=== PATIENT | female | born 1995 ===

== ENCOUNTER 2021-07-23 16:48 | Inpatient (IN) ==
[2021-07-23 18:35] LABS: Basophils # 0.1 10*3/uL (0.0-0.2); Basophils % 0.3 % (0.0-0.8); Eosinophils # 0.1 10*3/uL (0.0-0.87); Eosinophils % 0.3 % (0.00-10.9); Hemoglobin 11.9 GM/DL (12.0-16.0); Immature Granulocytes % 0.9 %; Immature Granulocytes Absolute 0.17 #; Lymphocytes # 2.2 10*3/uL (1.4-4.0); Lymphocytes % 11.2 % (21.3-54.2); Mean Corpuscular HGB Conc 32.2 GM/DL (32-36); Mean Corpuscular Volume 86.9 FL (87-102); Mean Platelet Volume 9.1 FL (9.6-12.0); Monocytes # 1.6 10*3/uL (0.11-0.8); Monocytes % 8.2 % (1.7-12.7); Neutrophils % 79.1 % (38.7-73.9); Platelet Count 356 T/CUMM (130-400); Red Blood Count 4.26 MC/CUMM (3.8-5.5); Red Cell Distribution Width 14.2 % (9.3-17.3); White Blood Count 19.9 T/CUMM (4-12)
[2021-07-23 18:56] LABS: Albumin 3.1 G/DL (3.4-5.0); Bilirubin,Total 0.5 MG/DL (0.20-1.00); Calcium 8.3 MG/DL (8.5-10.1); Potassium 3.5 MMOL/L (3.5-5.1); Total Protein 7.8 G/DL (6.4-8.2)
[2021-07-23 18:59] LABS: Mucus,Urine Occasional /LPF (Occasional); RBC,Urine 1 /HPF (0-4); Squamous Epithelial Cell,Urine Occasional /HPF (0-10); Urine Appearance Clear (Clear); Urine Color Yellow (Yellow)
[2021-07-23 19:00] LABS: Bilirubin,Urine Negative (Negative); Blood, Urine Negative (Negative); Glucose,Urine (UA) Negative (Negative); Ketones,Urine Negative (Negative); Nitrite,Urine Negative (Negative); Protein,Urine Negative (Negative); Urine Urobilinogen 0.2 eU/dL (<2.0); Urine pH 5.5 (4.5-8.0)
[2021-07-23] MEDS ORDERED: PIPERACILLIN/TAZOBACTAM 3,375 MG in SODIUM CHLORIDE 0.9% 100 ML IV STA (19:45)
[2021-07-23] MEDS ORDERED: ONDANSETRON 4 MG/2 ML VIAL IV STA (20:27)
[2021-07-23] MEDS ORDERED: ONDANSETRON 4 MG/2 ML VIAL ONE (20:28)
[2021-07-23] MEDS ORDERED: MAGNESIUM HYDROXIDE SUSP 30 ML UDCUP PO PRN (21:46)
[2021-07-23] MEDS ORDERED: ONDANSETRON 4 MG/2 ML VIAL IV PRN (21:46)
[2021-07-23] MEDS ORDERED: MORPHINE 2 MG/1 ML SYRINGE IV PRN (21:46)
[2021-07-23] MEDS ORDERED: IBUPROFEN 400 MG TABLET PO PRN (21:46)
[2021-07-23] MEDS ORDERED: ACETAMINOPHEN 325 MG TABLET PO PRN (21:46)
[2021-07-23] MEDS ORDERED: BISACODYL 10 MG SUPP RECTAL PRN (21:46)
[2021-07-23] MEDS: SODIUM CHLORIDE 0.9% 1,000 ML IV SCH (22:32)
[2021-07-23] MEDS: DOXYCYCLINE HYCLATE INJ 100 MG in SODIUM CHLORIDE 0.9% 100 ML IV SCH (23:05)
[2021-07-24] MEDS: CEFUROXIME INJ 1,500 MG in SODIUM CHLORIDE 0.9% 100 ML IV SCH ×2 (00:15→08:09)
[2021-07-24 04:32] LABS: Basophils # 0.1 10*3/uL (0.0-0.2); Basophils % 0.3 % (0.0-0.8); Eosinophils # 0.1 10*3/uL (0.0-0.87); Eosinophils % 0.4 % (0.00-10.9); Hematocrit 35.3 VOL% (35.7-47.0); Hemoglobin 11.4 GM/DL (12.0-16.0); Immature Granulocytes % 0.6 %; Immature Granulocytes Absolute 0.11 #; Lymphocytes # 2.5 10*3/uL (1.4-4.0); Lymphocytes % 12.8 % (21.3-54.2); Mean Corpuscular HGB Conc 32.3 GM/DL (32-36); Mean Corpuscular Volume 87.6 FL (87-102); Mean Platelet Volume 9.3 FL (9.6-12.0); Monocytes # 1.6 10*3/uL (0.11-0.8); Monocytes % 8.1 % (1.7-12.7); Neutrophils % 77.8 % (38.7-73.9); Platelet Count 323 T/CUMM (130-400); Red Blood Count 4.03 MC/CUMM (3.8-5.5); Red Cell Distribution Width 14.2 % (9.3-17.3); White Blood Count 19.4 T/CUMM (4-12)
[2021-07-24 04:51] LABS: Albumin 2.7 G/DL (3.4-5.0); Bilirubin,Total 0.5 MG/DL (0.20-1.00); Potassium 3.5 MMOL/L (3.5-5.1); Total Protein 7.2 G/DL (6.4-8.2)
[2021-07-24] MEDS: SODIUM CHLORIDE 0.9% 1,000 ML IV SCH ×2 (08:08→15:54)
[2021-07-24] MEDS ORDERED: ETHINYL ESTRADIOL/NORGESTREL 0.03-0.3 MG TABLET PO SCH (09:00)
[2021-07-24] MEDS: DOCUSATE SODIUM 100 MG CAPSULE PO SCH ×2 (09:53→21:09)
[2021-07-24] MEDS: DOXYCYCLINE HYCLATE INJ 100 MG in SODIUM CHLORIDE 0.9% 100 ML IV SCH ×2 (10:57→23:15)
[2021-07-25] MEDS ORDERED: IBUPROFEN 800 MG TABLET PO ONE (04:13)
[2021-07-25 07:07] VITALS: BP 118/61
[2021-07-25] MEDS: SODIUM CHLORIDE 0.9% 1,000 ML IV SCH (08:00)
[2021-07-25 08:49] LABS: Basophils % 0.2 % (0.0-0.8); Eosinophils # 0.2 10*3/uL (0.0-0.87); Eosinophils % 0.9 % (0.00-10.9); Hematocrit 37.1 VOL% (35.7-47.0); Immature Granulocytes % 0.5 %; Lymphocytes % 15.9 % (21.3-54.2); Mean Corpuscular HGB Conc 32.3 GM/DL (32-36); Mean Corpuscular Volume 87.3 FL (87-102); Mean Platelet Volume 9.4 FL (9.6-12.0); Monocytes # 1.1 10*3/uL (0.11-0.8); Neutrophils % 76.5 % (38.7-73.9); Platelet Count 351 T/CUMM (130-400); Red Blood Count 4.25 MC/CUMM (3.8-5.5); Red Cell Distribution Width 14.2 % (9.3-17.3); White Blood Count 18.5 T/CUMM (4-12)
[2021-07-25] MEDS: DOCUSATE SODIUM 100 MG CAPSULE PO SCH (08:53)
== END 2021-07-25 13:15 | disposition home or self-care (01) | DRG 759 ==
LOC: EDUNIT# → EDBD → N.ED 16:48 → N.EDINP 21:21 → N.5E 21:43 → N.OB 07-24 14:45
PROVIDERS: ADMIT Student in an Organized Health Care Education/Training Program; ATTEND Student in an Organized Health Care Education/Training Program

== ENCOUNTER 2022-01-22 19:21 | Inpatient (IN) ==
[2022-01-22] MEDS ORDERED: SODIUM CHLORIDE 0.9% 1,000 ML IV STA (19:53)
[2022-01-22] MEDS ORDERED: HYDROmorphone 1 MG/1 ML SYRINGE IV STA (19:53)
[2022-01-22] MEDS ORDERED: PIPERACILLIN/TAZOBACTAM 3,375 MG in SODIUM CHLORIDE 0.9% 100 ML IV STA (19:53)
[2022-01-22] MEDS ORDERED: ONDANSETRON 4 MG/2 ML VIAL IV STA (19:53)
[2022-01-22 21:16] LABS: Basophils # 0.1 10*3/uL (0.0-0.2); Basophils % 0.3 % (0.0-0.8); Hematocrit 32.1 VOL% (35.7-47.0); Hemoglobin 10.6 GM/DL (12.0-16.0); Immature Granulocytes % 3.6 %; Immature Granulocytes Absolute 1.21 #; Lymphocytes # 1.4 10*3/uL (1.4-4.0); Lymphocytes % 4.2 % (21.3-54.2); Mean Corpuscular Volume 85.1 FL (87-102); Mean Platelet Volume 9.1 FL (9.6-12.0); Monocytes # 2.2 10*3/uL (0.11-0.8); Monocytes % 6.6 % (1.7-12.7); Neutrophils % 85.3 % (38.7-73.9); Platelet Count 367 T/CUMM (130-400); Red Blood Count 3.77 MC/CUMM (3.8-5.5); Red Cell Distribution Width 14.6 % (9.3-17.3); White Blood Count 33.8 T/CUMM (4-12)
[2022-01-22 21:24] LABS: Bacteria,Urine Occasional /HPF (Few); Bilirubin,Urine Small mg/dL (Negative); Blood, Urine Large mg/dL (Negative); Glucose,Urine (UA) 50 mg/dL (Negative); Ketones,Urine 5 mg/dL (Negative); Mucus,Urine Many /LPF (Occasional); Nitrite,Urine Negative (Negative); Protein,Urine 100 mg/dL (Negative); RBC,Urine 1518 /HPF (0-4); Squamous Epithelial Cell,Urine Occasional /HPF (0-10); Urine Appearance CLOUDY (Clear); Urine Color Amber (Yellow); Urine Specific Gravity 1.028 (1.001-1.035)
[2022-01-22 21:38] LABS: Albumin 2.3 G/DL (3.4-5.0); Bilirubin,Total 0.7 MG/DL (0.20-1.00); Calcium 8.3 MG/DL (8.5-10.1); Osmolality,Calculated 268.4 MOS/KG (273-304); Potassium 3.2 MMOL/L (3.5-5.1); Total Protein 7.3 G/DL (6.4-8.2)
[2022-01-22 21:45] LABS: Band Neutrophils 10 % (0-10); Lymphocytes 4 % (20-55); Metamyelocytes 1 %; Total Cells Counted 100
[2022-01-22 21:46] LABS: Anisocytosis 1+; Microcytosis 1+
[2022-01-22 21:47] LABS: Platelet Estimate Adequate
[2022-01-23] MEDS ORDERED: MAGNESIUM HYDROXIDE SUSP 30 ML UDCUP PO PRN (00:39)
[2022-01-23] MEDS ORDERED: CLINDAMYCIN INJ 900 MG/50 ML PREMIX IV SCH (00:39)
[2022-01-23] MEDS ORDERED: BISACODYL 10 MG SUPP RECTAL PRN (00:39)
[2022-01-23] MEDS: SODIUM CHLORIDE 0.9% 1,000 ML IV SCH ×3 (00:50→22:34)
[2022-01-23] MEDS: CLINDAMYCIN INJ 900 MG/50 ML PREMIX IV SCH ×3 (01:20→20:47)
[2022-01-23] MEDS: DOXYCYCLINE HYCLATE INJ 100 MG in SODIUM CHLORIDE 0.9% 100 ML IV SCH ×2 (02:06→15:11)
[2022-01-23] MEDS: ACETAMINOPHEN 325 MG TABLET PO PRN ×2 (04:00→04:01)
[2022-01-23 06:51] LABS: Basophils # 0.1 10*3/uL (0.0-0.2); Basophils % 0.2 % (0.0-0.8); Hematocrit 32.1 VOL% (35.7-47.0); Hemoglobin 10.5 GM/DL (12.0-16.0); Immature Granulocytes % 4.1 %; Immature Granulocytes Absolute 1.14 #; Lymphocytes # 0.9 10*3/uL (1.4-4.0); Lymphocytes % 3.3 % (21.3-54.2); Mean Corpuscular HGB Conc 32.7 GM/DL (32-36); Mean Corpuscular Volume 86.1 FL (87-102); Mean Platelet Volume 9.2 FL (9.6-12.0); Monocytes # 1.9 10*3/uL (0.11-0.8); Monocytes % 6.9 % (1.7-12.7); Neutrophils % 85.5 % (38.7-73.9); Platelet Count 371 T/CUMM (130-400); Red Blood Count 3.73 MC/CUMM (3.8-5.5); Red Cell Distribution Width 14.8 % (9.3-17.3); White Blood Count 28.1 T/CUMM (4-12)
[2022-01-23 07:13] LABS: Band Neutrophils 5 % (0-10); Hypochromia Slight; Lymphocytes 2 % (20-55); Microcytosis Slight; Platelet Estimate Adequate; Total Cells Counted 100
[2022-01-23 07:20] LABS: Albumin 2.2 G/DL (3.4-5.0); Bilirubin,Total 0.8 MG/DL (0.20-1.00); Calcium 7.7 MG/DL (8.5-10.1); Potassium 3.2 MMOL/L (3.5-5.1); Total Protein 7.1 G/DL (6.4-8.2)
[2022-01-23] MEDS: DOCUSATE SODIUM 100 MG CAPSULE PO SCH ×2 (09:41→20:47)
[2022-01-23] MEDS: HYDROmorphone 1 MG/1 ML SYRINGE IV PRN (11:49)
[2022-01-23] MEDS ORDERED: oxyCODONE/ACETAMINOPHEN 5-325 MG TABLET PO PRN ×2 (14:16→14:17)
[2022-01-23] MEDS: PIPERACILLIN/TAZOBACTAM 3,375 MG in SODIUM CHLORIDE 0.9% 100 ML IV SCH ×2 (15:06→23:27)
[2022-01-23] MEDS: ACETAMINOPHEN 325 MG TABLET PO SCH ×2 (15:25→20:48)
[2022-01-23] MEDS: IBUPROFEN 800 MG TABLET PO PRN (16:52)
[2022-01-23] MEDS: ENOXAPARIN 40 MG/0.4 ML SYRINGE SUBCUT SCH (20:48)
[2022-01-23] MEDS: ONDANSETRON 4 MG/2 ML VIAL IV PRN (21:43)
[2022-01-24] MEDS: DOXYCYCLINE HYCLATE INJ 100 MG in SODIUM CHLORIDE 0.9% 100 ML IV SCH ×2 (03:35→15:24)
[2022-01-24] MEDS: ACETAMINOPHEN 325 MG TABLET PO SCH ×3 (03:36→18:39)
[2022-01-24] MEDS: CLINDAMYCIN INJ 900 MG/50 ML PREMIX IV SCH ×2 (05:15→12:52)
[2022-01-24 08:10] LABS: Basophils # 0.1 10*3/uL (0.0-0.2); Basophils % 0.2 % (0.0-0.8); Eosinophils # 0.1 10*3/uL (0.0-0.87); Eosinophils % 0.3 % (0.00-10.9); Hematocrit 31.5 VOL% (35.7-47.0); Hemoglobin 10.3 GM/DL (12.0-16.0); Immature Granulocytes % 1.5 %; Immature Granulocytes Absolute 0.49 #; Lymphocytes # 1.3 10*3/uL (1.4-4.0); Lymphocytes % 3.9 % (21.3-54.2); Mean Corpuscular HGB Conc 32.7 GM/DL (32-36); Mean Corpuscular Volume 86.1 FL (87-102); Mean Platelet Volume 9.2 FL (9.6-12.0); Monocytes # 1.4 10*3/uL (0.11-0.8); Monocytes % 4.4 % (1.7-12.7); Neutrophils % 89.7 % (38.7-73.9); Platelet Count 349 T/CUMM (130-400); Red Blood Count 3.66 MC/CUMM (3.8-5.5); Red Cell Distribution Width 15.3 % (9.3-17.3); White Blood Count 32.5 T/CUMM (4-12)
[2022-01-24] MEDS: PIPERACILLIN/TAZOBACTAM 3,375 MG in SODIUM CHLORIDE 0.9% 100 ML IV SCH ×2 (08:15→17:12)
[2022-01-24] MEDS: HYDROmorphone 1 MG/1 ML SYRINGE IV PRN ×2 (08:18→08:47)
[2022-01-24] MEDS: DOCUSATE SODIUM 100 MG CAPSULE PO SCH ×2 (08:19→20:46)
[2022-01-24 08:51] LABS: Band Neutrophils 27 % (0-10); Lymphocytes 8 % (20-55); Metamyelocytes 3 %; Myelocytes 1 %; Total Cells Counted 100
[2022-01-24 08:52] LABS: Anisocytosis Slight; Platelet Estimate Normal
[2022-01-24] MEDS: POTASSIUM CHLORIDE RIDER 10 MEQ/100 ML PREMIX IV PRN ×3 (12:51→15:30)
[2022-01-24] MEDS: SODIUM CHLORIDE 0.9% 1,000 ML IV SCH (15:28)
[2022-01-24] MEDS: oxyCODONE/ACETAMINOPHEN 5-325 MG TABLET PO PRN (17:31)
[2022-01-24] MEDS: CEFEPIME 1,000 MG in SODIUM CHLORIDE 0.9% 100 ML IV SCH ×2 (17:34→23:51)
[2022-01-24] MEDS: metroNIDAZOLE INJ 500 MG/100 ML PREMIX IV SCH (18:16)
[2022-01-24] MEDS: VANCOMYCIN INJ 2,000 MG in SODIUM CHLORIDE 0.9% 500 ML IV SCH (20:22)
[2022-01-24] MEDS: IBUPROFEN 800 MG TABLET PO PRN (20:47)
[2022-01-24] MEDS: ENOXAPARIN 40 MG/0.4 ML SYRINGE SUBCUT SCH (20:50)
[2022-01-25] MEDS: SODIUM CHLORIDE 0.9% 1,000 ML IV SCH (02:08)
[2022-01-25] MEDS: metroNIDAZOLE INJ 500 MG/100 ML PREMIX IV SCH ×3 (02:13→18:35)
[2022-01-25] MEDS: CEFEPIME 1,000 MG in SODIUM CHLORIDE 0.9% 100 ML IV SCH ×3 (05:37→17:25)
[2022-01-25] MEDS: ONDANSETRON 4 MG/2 ML VIAL IV PRN ×2 (06:00→12:47)
[2022-01-25 06:08] LABS: Basophils # 0.1 10*3/uL (0.0-0.2); Basophils % 0.2 % (0.0-0.8); Eosinophils # 0.1 10*3/uL (0.0-0.87); Eosinophils % 0.4 % (0.00-10.9); Hematocrit 32.4 VOL% (35.7-47.0); Hemoglobin 10.4 GM/DL (12.0-16.0); Immature Granulocytes % 2.5 %; Immature Granulocytes Absolute 0.83 #; Lymphocytes # 1.7 10*3/uL (1.4-4.0); Lymphocytes % 5.2 % (21.3-54.2); Mean Corpuscular HGB Conc 32.1 GM/DL (32-36); Mean Corpuscular Volume 87.3 FL (87-102); Mean Platelet Volume 9.2 FL (9.6-12.0); Monocytes # 1.6 10*3/uL (0.11-0.8); Monocytes % 4.7 % (1.7-12.7); Platelet Count 378 T/CUMM (130-400); Red Blood Count 3.71 MC/CUMM (3.8-5.5); Red Cell Distribution Width 15.5 % (9.3-17.3); White Blood Count 33.1 T/CUMM (4-12)
[2022-01-25 06:46] LABS: Calcium 7.9 MG/DL (8.5-10.1); Osmolality,Calculated 267.5 MOS/KG (273-304); Potassium 3.5 MMOL/L (3.5-5.1)
[2022-01-25 07:18] LABS: Eosinophils 1 % (0-10); Hypochromia Slight; Lymphocytes 8 % (20-55); Microcytosis Slight; Platelet Estimate Adequate; Total Cells Counted 100
[2022-01-25] MEDS: VANCOMYCIN INJ 2,000 MG in SODIUM CHLORIDE 0.9% 500 ML IV SCH (08:22)
[2022-01-25] MEDS: DOCUSATE SODIUM 100 MG CAPSULE PO SCH ×2 (09:48→21:14)
[2022-01-25] MEDS: IBUPROFEN 800 MG TABLET PO PRN (16:50)
[2022-01-25] MEDS: METOCLOPRAMIDE 10 MG/2 ML VIAL IV PRN (16:50)
[2022-01-25] MEDS: ENOXAPARIN 40 MG/0.4 ML SYRINGE SUBCUT SCH (21:14)
[2022-01-26] MEDS: ONDANSETRON 4 MG/2 ML VIAL IV PRN ×2 (00:07→20:37)
[2022-01-26] MEDS: CEFEPIME 1,000 MG in SODIUM CHLORIDE 0.9% 100 ML IV SCH ×2 (00:07→05:30)
[2022-01-26] MEDS: metroNIDAZOLE INJ 500 MG/100 ML PREMIX IV SCH ×2 (01:51→14:15)
[2022-01-26] MEDS: SODIUM CHLORIDE 0.9% 1,000 ML IV SCH (03:37)
[2022-01-26] MEDS: oxyCODONE/ACETAMINOPHEN 5-325 MG TABLET PO PRN (03:43)
[2022-01-26 05:37] LABS: Basophils # 0.1 10*3/uL (0.0-0.2); Basophils % 0.2 % (0.0-0.8); Eosinophils # 0.2 10*3/uL (0.0-0.87); Eosinophils % 0.5 % (0.00-10.9); Hematocrit 29.4 VOL% (35.7-47.0); Hemoglobin 9.3 GM/DL (12.0-16.0); Immature Granulocytes % 3.7 %; Immature Granulocytes Absolute 1.21 #; Lymphocytes # 1.7 10*3/uL (1.4-4.0); Lymphocytes % 5.3 % (21.3-54.2); Mean Corpuscular HGB Conc 31.6 GM/DL (32-36); Mean Corpuscular Volume 88.8 FL (87-102); Mean Platelet Volume 9.3 FL (9.6-12.0); Monocytes % 6.3 % (1.7-12.7); Platelet Count 407 T/CUMM (130-400); Red Blood Count 3.31 MC/CUMM (3.8-5.5); Red Cell Distribution Width 15.9 % (9.3-17.3); White Blood Count 32.5 T/CUMM (4-12)
[2022-01-26 06:09] LABS: Calcium 7.9 MG/DL (8.5-10.1); Osmolality,Calculated 279.1 MOS/KG (273-304); Potassium 3.3 MMOL/L (3.5-5.1)
[2022-01-26 06:23] LABS: Band Neutrophils 1 % (0-10); Hypochromia Slight; Lymphocytes 7 % (20-55); Microcytosis Slight; Platelet Estimate Adequate; Total Cells Counted 100
[2022-01-26] MEDS ORDERED: DEXAMETHASONE 4 MG/1 ML VIAL ONE ×2 (09:02→09:28)
[2022-01-26] MEDS ORDERED: fentaNYL 100 MCG/2 ML VIAL ONE (09:02)
[2022-01-26] MEDS ORDERED: ROCURONIUM 50 MG/5 ML VIAL IV ONE (09:02)
[2022-01-26] MEDS ORDERED: KETOROLAC 30 MG/1 ML VIAL ONE (09:02)
[2022-01-26] MEDS ORDERED: MIDAZOLAM 2 MG/2 ML VIAL ONE (09:02)
[2022-01-26] MEDS ORDERED: LIDOCAINE 2% 5 ML VIAL ONE (09:02)
[2022-01-26] MEDS ORDERED: SEVOFLURANE 1 UNIT/15 MINUTE INH ONE (09:02)
[2022-01-26] MEDS ORDERED: propofoL 200 MG/20 ML VIAL IV ONE (09:02)
[2022-01-26] MEDS ORDERED: ONDANSETRON 4 MG/2 ML VIAL ONE (09:02)
[2022-01-26] MEDS ORDERED: ROPIVACAINE 0.5% 30 ML VIAL ONE (09:28)
[2022-01-26] MEDS ORDERED: LIDOCAINE 50 MG/5 ML SYRINGE ONE (09:29)
[2022-01-26] MEDS ORDERED: SUGAMMADEX 200 MG/2 ML VIAL IV ONE (10:47)
[2022-01-26] MEDS ORDERED: LACTATED RINGERS 1,000 ML IV ONE (11:10)
[2022-01-26] MEDS ORDERED: DESFLURANE 1 UNIT/15 MINUTE INH ONE (11:10)
[2022-01-26] MEDS: HYDROmorphone 1 MG/1 ML SYRINGE IV PRN ×4 (11:30→20:36)
[2022-01-26] MEDS: CLINDAMYCIN INJ 900 MG/50 ML PREMIX IV SCH ×2 (13:47→23:29)
[2022-01-26] MEDS: DOCUSATE SODIUM 100 MG CAPSULE PO SCH (14:15)
[2022-01-26] MEDS ORDERED: CEFEPIME 1,000 MG in SODIUM CHLORIDE 0.9% 100 ML IV SCH (17:00)
[2022-01-26] MEDS ORDERED: POTASSIUM CHLORIDE IV SCH (17:00)
[2022-01-26] MEDS ORDERED: [UNRECOGNIZED DRUG - OTHER] IV SCH (17:00)
[2022-01-26] MEDS ORDERED: SODIUM BICARB IV SCH (17:00)
[2022-01-26 18:00] LABS: Basophils # 0.1 10*3/uL (0.0-0.2); Basophils % 0.3 % (0.0-0.8); Eosinophils % 0.1 % (0.00-10.9); Hematocrit 29.9 VOL% (35.7-47.0); Hemoglobin 9.7 GM/DL (12.0-16.0); Immature Granulocytes % 5.7 %; Immature Granulocytes Absolute 1.96 #; Lymphocytes # 1.4 10*3/uL (1.4-4.0); Lymphocytes % 3.9 % (21.3-54.2); Mean Corpuscular HGB Conc 32.4 GM/DL (32-36); Mean Corpuscular Volume 86.9 FL (87-102); Mean Platelet Volume 8.8 FL (9.6-12.0); Monocytes # 1.1 10*3/uL (0.11-0.8); Monocytes % 3.3 % (1.7-12.7); Neutrophils % 86.7 % (38.7-73.9); Platelet Count 423 T/CUMM (130-400); Red Blood Count 3.44 MC/CUMM (3.8-5.5); Red Cell Distribution Width 15.9 % (9.3-17.3); White Blood Count 34.5 T/CUMM (4-12)
[2022-01-26 18:22] LABS: Lymphocytes 4 % (20-55); Total Cells Counted 100
[2022-01-26 18:23] LABS: Platelet Estimate Increased
[2022-01-26 18:24] LABS: Microcytosis Slight
[2022-01-26] MEDS ORDERED: ENOXAPARIN 30 MG/0.3 ML SYRINGE SUBCUT SCH (21:00)
[2022-01-27] MEDS: oxyCODONE/ACETAMINOPHEN 5-325 MG TABLET PO PRN ×3 (04:08→18:21)
[2022-01-27] MEDS: CLINDAMYCIN INJ 900 MG/50 ML PREMIX IV SCH (05:30)
[2022-01-27 06:02] LABS: Basophils # 0.1 10*3/uL (0.0-0.2); Basophils % 0.3 % (0.0-0.8); Hematocrit 28.2 VOL% (35.7-47.0); Hemoglobin 9.1 GM/DL (12.0-16.0); Immature Granulocytes % 6.7 %; Immature Granulocytes Absolute 2.15 #; Lymphocytes # 1.9 10*3/uL (1.4-4.0); Lymphocytes % 5.9 % (21.3-54.2); Mean Corpuscular HGB Conc 32.3 GM/DL (32-36); Mean Corpuscular Volume 87.3 FL (87-102); Mean Platelet Volume 9.1 FL (9.6-12.0); Monocytes # 2.1 10*3/uL (0.11-0.8); Monocytes % 6.7 % (1.7-12.7); Neutrophils % 80.4 % (38.7-73.9); Platelet Count 428 T/CUMM (130-400); Red Blood Count 3.23 MC/CUMM (3.8-5.5); Red Cell Distribution Width 15.9 % (9.3-17.3)
[2022-01-27 06:27] LABS: Albumin 1.7 G/DL (3.4-5.0); Bilirubin,Total 0.5 MG/DL (0.20-1.00); Calcium 8.1 MG/DL (8.5-10.1); Osmolality,Calculated 286.1 MOS/KG (273-304); Total Protein 6.2 G/DL (6.4-8.2)
[2022-01-27] MEDS ORDERED: FUROSEMIDE 20 MG/2 ML VIAL IV ONE (06:29)
[2022-01-27 06:32] LABS: Hypochromia Slight; Lymphocytes 6 % (20-55); Microcytosis Slight; Platelet Estimate Adequate; Total Cells Counted 100
[2022-01-27] MEDS: DEXTROSE 5% LACTATED RINGERS 1,000 ML IV SCH ×2 (06:43→13:32)
[2022-01-27] MEDS: ONDANSETRON 4 MG/2 ML VIAL IV PRN (08:42)
[2022-01-27] MEDS ORDERED: PROMETHAZINE 25 MG/1 ML VIAL IM PRN (10:20)
[2022-01-27] MEDS: METOCLOPRAMIDE 10 MG TABLET PO SCH ×2 (10:49→18:21)
[2022-01-27] MEDS: SCOPOLAMINE 1.5 MG PATCH TRANSDERM SCH (10:50)
[2022-01-27] MEDS ORDERED: LINEZOLID INJ 600 MG/300 ML PREMIX IV SCH (12:00)
[2022-01-27] MEDS ORDERED: ceFAZolin 2,000 MG/50 ML DUPLEX IV ONE (14:00)
[2022-01-28] MEDS: DEXTROSE 5% LACTATED RINGERS 1,000 ML IV SCH ×2 (02:32→17:01)
[2022-01-28] MEDS: METOCLOPRAMIDE 10 MG TABLET PO SCH ×3 (02:32→18:15)
[2022-01-28 06:35] LABS: Basophils # 0.1 10*3/uL (0.0-0.2); Basophils % 0.4 % (0.0-0.8); Eosinophils # 0.3 10*3/uL (0.0-0.87); Hematocrit 28.3 VOL% (35.7-47.0); Immature Granulocytes % 10.1 %; Immature Granulocytes Absolute 2.61 #; Lymphocytes # 2.4 10*3/uL (1.4-4.0); Lymphocytes % 9.2 % (21.3-54.2); Mean Corpuscular HGB Conc 31.8 GM/DL (32-36); Monocytes # 2.1 10*3/uL (0.11-0.8); Monocytes % 8.1 % (1.7-12.7); Neutrophils % 71.2 % (38.7-73.9); Platelet Count 502 T/CUMM (130-400); Red Blood Count 3.29 MC/CUMM (3.8-5.5); Red Cell Distribution Width 16.3 % (9.3-17.3); White Blood Count 25.7 T/CUMM (4-12)
[2022-01-28 06:52] LABS: Potassium 3.7 MMOL/L (3.5-5.1)
[2022-01-28 06:57] LABS: Band Neutrophils 2 % (0-10); Hypochromia 1+; Lymphocytes 13 % (20-55); Microcytosis 1+; Platelet Estimate Increased; Total Cells Counted 100
[2022-01-28] MEDS: HYDROmorphone 1 MG/1 ML SYRINGE IV PRN (11:00)
[2022-01-28] MEDS: ONDANSETRON 4 MG/2 ML VIAL IV PRN (19:20)
[2022-01-29] MEDS: METOCLOPRAMIDE 10 MG TABLET PO SCH ×3 (05:30→18:33)
[2022-01-29 05:34] LABS: Basophils # 0.1 10*3/uL (0.0-0.2); Basophils % 0.5 % (0.0-0.8); Eosinophils # 0.4 10*3/uL (0.0-0.87); Eosinophils % 1.5 % (0.00-10.9); Hematocrit 28.3 VOL% (35.7-47.0); Hemoglobin 9.2 GM/DL (12.0-16.0); Immature Granulocytes % 13.5 %; Immature Granulocytes Absolute 3.34 #; Lymphocytes # 3.2 10*3/uL (1.4-4.0); Lymphocytes % 12.7 % (21.3-54.2); Mean Corpuscular HGB Conc 32.5 GM/DL (32-36); Mean Platelet Volume 8.8 FL (9.6-12.0); Monocytes # 1.9 10*3/uL (0.11-0.8); Monocytes % 7.6 % (1.7-12.7); Neutrophils % 64.2 % (38.7-73.9); Platelet Count 539 T/CUMM (130-400); Red Blood Count 3.29 MC/CUMM (3.8-5.5); Red Cell Distribution Width 16.1 % (9.3-17.3); White Blood Count 24.8 T/CUMM (4-12)
[2022-01-29 05:44] LABS: Calcium 7.7 MG/DL (8.5-10.1); Potassium 3.5 MMOL/L (3.5-5.1)
[2022-01-29 06:09] LABS: Band Neutrophils 1 % (0-10); Eosinophils 1 % (0-10); Lymphocytes 11 % (20-55); Platelet Estimate Increased; Total Cells Counted 100
[2022-01-29 06:10] LABS: Hypochromia Slight; Microcytosis Slight
[2022-01-29] MEDS ORDERED: fentaNYL 100 MCG/2 ML VIAL ONE (11:46)
[2022-01-29] MEDS ORDERED: MIDAZOLAM 2 MG/2 ML VIAL ONE (11:47)
[2022-01-29] MEDS ORDERED: ONDANSETRON 4 MG/2 ML VIAL ONE (13:25)
[2022-01-29] MEDS: DEXTROSE 5% LACTATED RINGERS 1,000 ML IV SCH (14:48)
[2022-01-30] MEDS: METOCLOPRAMIDE 10 MG TABLET PO SCH ×2 (01:30→16:47)
[2022-01-30 05:09] LABS: Basophils # 0.2 10*3/uL (0.0-0.2); Basophils % 0.6 % (0.0-0.8); Eosinophils # 0.4 10*3/uL (0.0-0.87); Eosinophils % 1.5 % (0.00-10.9); Hematocrit 27.7 VOL% (35.7-47.0); Hemoglobin 8.9 GM/DL (12.0-16.0); Immature Granulocytes % 14.1 %; Immature Granulocytes Absolute 3.38 #; Lymphocytes # 2.6 10*3/uL (1.4-4.0); Lymphocytes % 10.9 % (21.3-54.2); Mean Corpuscular HGB Conc 32.1 GM/DL (32-36); Mean Corpuscular Volume 86.8 FL (87-102); Mean Platelet Volume 8.6 FL (9.6-12.0); Monocytes # 1.5 10*3/uL (0.11-0.8); Monocytes % 6.4 % (1.7-12.7); Neutrophils % 66.5 % (38.7-73.9); Platelet Count 554 T/CUMM (130-400); Red Blood Count 3.19 MC/CUMM (3.8-5.5); Red Cell Distribution Width 15.9 % (9.3-17.3); White Blood Count 23.9 T/CUMM (4-12)
[2022-01-30 05:31] LABS: Calcium 7.7 MG/DL (8.5-10.1); Osmolality,Calculated 293.8 MOS/KG (273-304); Potassium 3.7 MMOL/L (3.5-5.1)
[2022-01-30 05:42] LABS: Band Neutrophils 2 % (0-10); Lymphocytes 14 % (20-55); Microcytosis Slight; Total Cells Counted 100
[2022-01-30 05:43] LABS: Hypochromia Slight; Platelet Estimate Increased
[2022-01-30] MEDS: DEXTROSE 5% LACTATED RINGERS 1,000 ML IV SCH (11:22)
[2022-01-30] MEDS: SCOPOLAMINE 1.5 MG PATCH TRANSDERM SCH (15:03)
[2022-01-31] MEDS: METOCLOPRAMIDE 10 MG TABLET PO SCH ×4 (02:11→19:25)
[2022-01-31 04:57] LABS: Basophils # 0.1 10*3/uL (0.0-0.2); Basophils % 0.4 % (0.0-0.8); Eosinophils # 0.5 10*3/uL (0.0-0.87); Eosinophils % 1.9 % (0.00-10.9); Hematocrit 26.9 VOL% (35.7-47.0); Hemoglobin 8.7 GM/DL (12.0-16.0); Immature Granulocytes % 12.9 %; Immature Granulocytes Absolute 3.19 #; Lymphocytes # 2.5 10*3/uL (1.4-4.0); Mean Corpuscular HGB Conc 32.3 GM/DL (32-36); Mean Corpuscular Volume 86.2 FL (87-102); Mean Platelet Volume 8.4 FL (9.6-12.0); Monocytes # 1.8 10*3/uL (0.11-0.8); Monocytes % 7.4 % (1.7-12.7); Neutrophils % 67.4 % (38.7-73.9); Platelet Count 584 T/CUMM (130-400); Red Blood Count 3.12 MC/CUMM (3.8-5.5); Red Cell Distribution Width 16.1 % (9.3-17.3); White Blood Count 24.7 T/CUMM (4-12)
[2022-01-31 05:18] LABS: Calcium 7.8 MG/DL (8.5-10.1); Osmolality,Calculated 296.7 MOS/KG (273-304); Potassium 3.8 MMOL/L (3.5-5.1)
[2022-01-31 05:21] LABS: Band Neutrophils 4 % (0-10); Eosinophils 1 % (0-10); Lymphocytes 15 % (20-55); Metamyelocytes 1 %; Total Cells Counted 100
[2022-01-31 05:22] LABS: Hypochromia Slight; Microcytosis 1+; Polychromasia Slight
[2022-01-31 05:23] LABS: Platelet Estimate Increased
[2022-01-31] MEDS: DEXTROSE 5% LACTATED RINGERS 1,000 ML IV SCH (07:58)
[2022-01-31] MEDS: oxyCODONE/ACETAMINOPHEN 5-325 MG TABLET PO PRN (17:02)
[2022-02-01] MEDS: ONDANSETRON 4 MG/2 ML VIAL IV PRN (02:09)
[2022-02-01] MEDS: DEXTROSE 5% LACTATED RINGERS 1,000 ML IV SCH ×2 (03:48→23:38)
[2022-02-01] MEDS: METOCLOPRAMIDE 10 MG TABLET PO SCH (06:07)
[2022-02-01 06:27] LABS: Basophils # 0.1 10*3/uL (0.0-0.2); Basophils % 0.4 % (0.0-0.8); Eosinophils # 0.5 10*3/uL (0.0-0.87); Eosinophils % 1.9 % (0.00-10.9); Hematocrit 27.5 VOL% (35.7-47.0); Hemoglobin 8.7 GM/DL (12.0-16.0); Immature Granulocytes % 10.9 %; Immature Granulocytes Absolute 2.62 #; Lymphocytes # 2.4 10*3/uL (1.4-4.0); Lymphocytes % 10.2 % (21.3-54.2); Mean Corpuscular HGB Conc 31.6 GM/DL (32-36); Mean Corpuscular Volume 86.8 FL (87-102); Mean Platelet Volume 8.6 FL (9.6-12.0); Monocytes # 1.8 10*3/uL (0.11-0.8); Monocytes % 7.4 % (1.7-12.7); Neutrophils % 69.2 % (38.7-73.9); Platelet Count 616 T/CUMM (130-400); Red Blood Count 3.17 MC/CUMM (3.8-5.5); Red Cell Distribution Width 15.9 % (9.3-17.3)
[2022-02-01 06:43] LABS: Calcium 8.2 MG/DL (8.5-10.1); Osmolality,Calculated 295.7 MOS/KG (273-304); Potassium 3.8 MMOL/L (3.5-5.1)
[2022-02-01 06:55] LABS: Anisocytosis Slight; Band Neutrophils 5 % (0-10); Eosinophils 2 % (0-10); Lymphocytes 11 % (20-55); Metamyelocytes 1 %; Platelet Estimate Increased; Total Cells Counted 100
[2022-02-01] MEDS: oxyCODONE/ACETAMINOPHEN 5-325 MG TABLET PO PRN ×2 (11:02→19:22)
[2022-02-02 04:57] LABS: Basophils # 0.1 10*3/uL (0.0-0.2); Basophils % 0.4 % (0.0-0.8); Eosinophils # 0.5 10*3/uL (0.0-0.87); Eosinophils % 2.1 % (0.00-10.9); Hematocrit 26.9 VOL% (35.7-47.0); Hemoglobin 8.4 GM/DL (12.0-16.0); Immature Granulocytes Absolute 1.95 #; Lymphocytes # 2.6 10*3/uL (1.4-4.0); Lymphocytes % 12.1 % (21.3-54.2); Mean Corpuscular HGB Conc 31.2 GM/DL (32-36); Mean Corpuscular Volume 87.6 FL (87-102); Mean Platelet Volume 8.6 FL (9.6-12.0); Monocytes # 1.7 10*3/uL (0.11-0.8); Monocytes % 7.6 % (1.7-12.7); Neutrophils % 68.8 % (38.7-73.9); Platelet Count 639 T/CUMM (130-400); Red Blood Count 3.07 MC/CUMM (3.8-5.5); Red Cell Distribution Width 16.1 % (9.3-17.3); White Blood Count 21.7 T/CUMM (4-12)
[2022-02-02 05:13] LABS: Osmolality,Calculated 299.5 MOS/KG (273-304); Potassium 4.4 MMOL/L (3.5-5.1)
[2022-02-02 05:45] LABS: Anisocytosis 1+; Band Neutrophils 7 % (0-10); Eosinophils 1 % (0-10); Lymphocytes 16 % (20-55); Macrocytosis Slight; Metamyelocytes 5 %; Myelocytes 3 %; Nucleated Red Blood Cells 1 /100 WBC (0-5); Platelet Estimate Increased; Total Cells Counted 100
[2022-02-02] MEDS: ONDANSETRON 4 MG/2 ML VIAL IV PRN (07:38)
[2022-02-02] MEDS: SCOPOLAMINE 1.5 MG PATCH TRANSDERM SCH (15:04)
[2022-02-02] MEDS: DEXTROSE 5% LACTATED RINGERS 1,000 ML IV SCH (18:05)
[2022-02-03 05:45] LABS: Basophils # 0.1 10*3/uL (0.0-0.2); Basophils % 0.3 % (0.0-0.8); Eosinophils # 0.3 10*3/uL (0.0-0.87); Eosinophils % 1.3 % (0.00-10.9); Hematocrit 24.9 VOL% (35.7-47.0); Hemoglobin 7.9 GM/DL (12.0-16.0); Immature Granulocytes % 6.4 %; Immature Granulocytes Absolute 1.36 #; Lymphocytes # 2.2 10*3/uL (1.4-4.0); Lymphocytes % 10.2 % (21.3-54.2); Mean Corpuscular HGB Conc 31.7 GM/DL (32-36); Mean Corpuscular Volume 87.1 FL (87-102); Mean Platelet Volume 8.5 FL (9.6-12.0); Monocytes # 1.4 10*3/uL (0.11-0.8); Monocytes % 6.8 % (1.7-12.7); Platelet Count 629 T/CUMM (130-400); Red Blood Count 2.86 MC/CUMM (3.8-5.5); Red Cell Distribution Width 15.9 % (9.3-17.3); White Blood Count 21.3 T/CUMM (4-12)
[2022-02-03 06:00] LABS: Calcium 8.1 MG/DL (8.5-10.1); Osmolality,Calculated 290.1 MOS/KG (273-304)
[2022-02-03] MEDS: oxyCODONE/ACETAMINOPHEN 5-325 MG TABLET PO PRN ×3 (07:57→23:36)
[2022-02-03 08:02] LABS: Band Neutrophils 1 % (0-10); Lymphocytes 9 % (20-55); Myelocytes 2 %; Total Cells Counted 100
[2022-02-03] MEDS: ONDANSETRON 4 MG/2 ML VIAL IV PRN (08:02)
[2022-02-03 08:03] LABS: Hypochromia Slight; Microcytosis 1+; Platelet Estimate Increased
[2022-02-04] MEDS: ONDANSETRON 4 MG/2 ML VIAL IV PRN (07:58)
[2022-02-04] MEDS: oxyCODONE/ACETAMINOPHEN 5-325 MG TABLET PO PRN ×2 (08:04→19:29)
[2022-02-04 08:10] LABS: Basophils # 0.1 10*3/uL (0.0-0.2); Basophils % 0.2 % (0.0-0.8); Eosinophils # 0.3 10*3/uL (0.0-0.87); Eosinophils % 1.5 % (0.00-10.9); Hematocrit 25.8 VOL% (35.7-47.0); Hemoglobin 8.1 GM/DL (12.0-16.0); Immature Granulocytes % 4.3 %; Immature Granulocytes Absolute 0.92 #; Lymphocytes # 2.2 10*3/uL (1.4-4.0); Lymphocytes % 10.1 % (21.3-54.2); Mean Corpuscular HGB Conc 31.4 GM/DL (32-36); Mean Corpuscular Volume 88.1 FL (87-102); Mean Platelet Volume 8.3 FL (9.6-12.0); Monocytes # 1.5 10*3/uL (0.11-0.8); Monocytes % 7.1 % (1.7-12.7); Neutrophils % 76.8 % (38.7-73.9); Platelet Count 626 T/CUMM (130-400); Red Blood Count 2.93 MC/CUMM (3.8-5.5); Red Cell Distribution Width 16.1 % (9.3-17.3); White Blood Count 21.4 T/CUMM (4-12)
[2022-02-04 08:27] LABS: Albumin 2.2 G/DL (3.4-5.0); Bilirubin,Total 0.4 MG/DL (0.20-1.00); Calcium 8.3 MG/DL (8.5-10.1); Osmolality,Calculated 294.8 MOS/KG (273-304); Potassium 4.2 MMOL/L (3.5-5.1); Total Protein 7.2 G/DL (6.4-8.2)
[2022-02-04 08:58] LABS: Band Neutrophils 2 % (0-10); Eosinophils 3 % (0-10); Hypochromia Slight; Lymphocytes 8 % (20-55); Microcytosis 1+; Myelocytes 1 %; Total Cells Counted 100
[2022-02-04] MEDS ORDERED: FUROSEMIDE 40 MG/4 ML VIAL IV ONE (11:00)
[2022-02-04 12:26] LABS: Bacteria,Urine Moderate /HPF (Few); Glucose,Urine (UA) Negative (Negative); Ketones,Urine Negative (Negative); Nitrite,Urine Negative (Negative); Protein,Urine Trace mg/dL (Negative); RBC,Urine 689 /HPF (0-4); Squamous Epithelial Cell,Urine Occasional /HPF (0-10); Urine Appearance Clear (Clear); Urine Color Yellow (Yellow); Urine Specific Gravity 1.015 (1.001-1.035); Urine pH 5.5 (4.5-8.0)
[2022-02-04 12:27] LABS: Bilirubin,Urine Negative (Negative); Blood, Urine Large mg/dL (Negative); Urine Urobilinogen < 2.0 eU/dL (<2.0)
[2022-02-04] MEDS ORDERED: DIAZEPAM 5 MG TABLET PO ONE (14:23)
[2022-02-04] MEDS ORDERED: SODIUM CHLORIDE 0.45% 1,000 ML IV SCH ×2 (14:30→15:00)
[2022-02-04] MEDS ORDERED: MIDAZOLAM 2 MG/2 ML VIAL IV ONE (14:45)
[2022-02-04] MEDS ORDERED: fentaNYL 100 MCG/2 ML VIAL IV ONE (14:45)
[2022-02-05] MEDS: oxyCODONE/ACETAMINOPHEN 5-325 MG TABLET PO PRN ×4 (03:31→21:03)
[2022-02-05 05:52] LABS: Basophils # 0.1 10*3/uL (0.0-0.2); Basophils % 0.2 % (0.0-0.8); Eosinophils # 0.1 10*3/uL (0.0-0.87); Eosinophils % 0.6 % (0.00-10.9); Hematocrit 26.1 VOL% (35.7-47.0); Hemoglobin 8.1 GM/DL (12.0-16.0); Immature Granulocytes % 1.9 %; Immature Granulocytes Absolute 0.45 #; Lymphocytes # 1.4 10*3/uL (1.4-4.0); Mean Corpuscular Volume 88.5 FL (87-102); Mean Platelet Volume 8.7 FL (9.6-12.0); Monocytes # 0.9 10*3/uL (0.11-0.8); Monocytes % 3.7 % (1.7-12.7); Neutrophils % 87.6 % (38.7-73.9); Platelet Count 681 T/CUMM (130-400); Red Blood Count 2.95 MC/CUMM (3.8-5.5); Red Cell Distribution Width 16.1 % (9.3-17.3)
[2022-02-05 06:13] LABS: Alanine Aminotransferase < 9 U/L (13-56); Albumin 2.2 G/DL (3.4-5.0); Alkaline Phosphatase 121 U/L (45-117); Aspartate Amino Transferase 9 U/L (0-37); Blood Urea Nitrogen 67 MG/DL (7-18); Calcium 8.4 MG/DL (8.5-10.1); Carbon Dioxide 23 MMOL/L (21-32); Chloride 104 MMOL/L (98-107); Glucose 111 MG/DL (74-106); Osmolality,Calculated 292.8 MOS/KG (273-304); Potassium 4.2 MMOL/L (3.5-5.1); Sodium 137 MMOL/L (136-145)
[2022-02-05 06:18] LABS: Anisocytosis 1+; Eosinophils 2 % (0-10); Hypochromia Slight; Lymphocytes 1 % (20-55); Microcytosis 1+; Total Cells Counted 100
[2022-02-05 06:19] LABS: Platelet Estimate Increased
[2022-02-05] MEDS: SCOPOLAMINE 1.5 MG PATCH TRANSDERM SCH (09:15)
[2022-02-05] MEDS: LACTATED RINGERS 1,000 ML IV SCH (13:20)
[2022-02-05] MEDS: cefTRIAXone 2,000 MG in SODIUM CHLORIDE 0.9% 100 ML IV SCH (13:21)
[2022-02-05] MEDS: DOXYCYCLINE HYCLATE INJ 100 MG in SODIUM CHLORIDE 0.9% 100 ML IV SCH (14:01)
[2022-02-05] MEDS: metroNIDAZOLE INJ 500 MG/100 ML PREMIX IV SCH (15:06)
[2022-02-05] MEDS ORDERED: FUROSEMIDE 40 MG/4 ML VIAL IV ONE (16:03)
[2022-02-06] MEDS: DOXYCYCLINE HYCLATE INJ 100 MG in SODIUM CHLORIDE 0.9% 100 ML IV SCH ×2 (01:31→13:10)
[2022-02-06] MEDS: metroNIDAZOLE INJ 500 MG/100 ML PREMIX IV SCH ×2 (03:25→14:25)
[2022-02-06] MEDS: ACETAMINOPHEN 325 MG TABLET PO PRN (05:46)
[2022-02-06] MEDS: ONDANSETRON 4 MG/2 ML VIAL IV PRN ×2 (06:14→23:13)
[2022-02-06 06:16] LABS: Basophils # 0.1 10*3/uL (0.0-0.2); Basophils % 0.2 % (0.0-0.8); Eosinophils # 0.3 10*3/uL (0.0-0.87); Eosinophils % 1.3 % (0.00-10.9); Hematocrit 25.6 VOL% (35.7-47.0); Hemoglobin 8.1 GM/DL (12.0-16.0); Immature Granulocytes % 1.7 %; Immature Granulocytes Absolute 0.37 #; Lymphocytes # 2.2 10*3/uL (1.4-4.0); Lymphocytes % 9.8 % (21.3-54.2); Mean Corpuscular HGB Conc 31.6 GM/DL (32-36); Mean Corpuscular Volume 88.3 FL (87-102); Mean Platelet Volume 8.5 FL (9.6-12.0); Monocytes # 0.8 10*3/uL (0.11-0.8); Monocytes % 3.7 % (1.7-12.7); Neutrophils % 83.3 % (38.7-73.9); Platelet Count 618 T/CUMM (130-400); Red Cell Distribution Width 15.9 % (9.3-17.3)
[2022-02-06 06:38] LABS: Alanine Aminotransferase < 9 U/L (13-56); Albumin 2.2 G/DL (3.4-5.0); Alkaline Phosphatase 133 U/L (45-117); Aspartate Amino Transferase 9 U/L (0-37); Blood Urea Nitrogen 56 MG/DL (7-18); Calcium 8.3 MG/DL (8.5-10.1); Carbon Dioxide 24 MMOL/L (21-32); Chloride 104 MMOL/L (98-107); Glucose 92 MG/DL (74-106); Potassium 4.5 MMOL/L (3.5-5.1); Sodium 136 MMOL/L (136-145); Total Protein 7.3 G/DL (6.4-8.2)
[2022-02-06 06:41] LABS: Hypochromia Slight; Lymphocytes 10 % (20-55); Total Cells Counted 100
[2022-02-06 06:42] LABS: Microcytosis 1+
[2022-02-06] MEDS: LACTATED RINGERS 1,000 ML IV SCH (08:30)
[2022-02-06] MEDS: oxyCODONE/ACETAMINOPHEN 5-325 MG TABLET PO PRN ×2 (10:11→23:09)
[2022-02-06] MEDS: cefTRIAXone 2,000 MG in SODIUM CHLORIDE 0.9% 100 ML IV SCH (12:24)
[2022-02-07] MEDS: DOXYCYCLINE HYCLATE INJ 100 MG in SODIUM CHLORIDE 0.9% 100 ML IV SCH ×2 (01:42→14:32)
[2022-02-07] MEDS: metroNIDAZOLE INJ 500 MG/100 ML PREMIX IV SCH ×2 (02:44→16:05)
[2022-02-07 06:29] LABS: Basophils % 0.2 % (0.0-0.8); Eosinophils # 0.3 10*3/uL (0.0-0.87); Eosinophils % 1.6 % (0.00-10.9); Hematocrit 23.2 VOL% (35.7-47.0); Hemoglobin 7.1 GM/DL (12.0-16.0); Immature Granulocytes % 1.8 %; Immature Granulocytes Absolute 0.34 #; Lymphocytes # 3.1 10*3/uL (1.4-4.0); Lymphocytes % 16.7 % (21.3-54.2); Mean Corpuscular HGB Conc 30.6 GM/DL (32-36); Mean Corpuscular Volume 90.6 FL (87-102); Mean Platelet Volume 8.5 FL (9.6-12.0); Monocytes # 1.3 10*3/uL (0.11-0.8); Neutrophils % 72.7 % (38.7-73.9); Platelet Count 602 T/CUMM (130-400); Red Blood Count 2.56 MC/CUMM (3.8-5.5); Red Cell Distribution Width 16.1 % (9.3-17.3); White Blood Count 18.5 T/CUMM (4-12)
[2022-02-07 06:49] LABS: Alanine Aminotransferase < 9 U/L (13-56); Albumin 2.1 G/DL (3.4-5.0); Alkaline Phosphatase 112 U/L (45-117); Aspartate Amino Transferase 6 U/L (0-37); Bilirubin,Total < 0.39 MG/DL (0.20-1.00); Blood Urea Nitrogen 47 MG/DL (7-18); Calcium 8.3 MG/DL (8.5-10.1); Carbon Dioxide 25 MMOL/L (21-32); Chloride 107 MMOL/L (98-107); Glucose 90 MG/DL (74-106); Osmolality,Calculated 286.7 MOS/KG (273-304); Potassium 4.3 MMOL/L (3.5-5.1); Sodium 138 MMOL/L (136-145); Total Protein 6.9 G/DL (6.4-8.2)
[2022-02-07] MEDS: oxyCODONE/ACETAMINOPHEN 5-325 MG TABLET PO PRN ×2 (08:49→14:46)
[2022-02-07] MEDS ORDERED: SODIUM CHLORIDE 0.9% 1,000 ML IV PRN (09:00)
[2022-02-07] MEDS: cefTRIAXone 2,000 MG in SODIUM CHLORIDE 0.9% 100 ML IV SCH (13:49)
[2022-02-08] MEDS: oxyCODONE/ACETAMINOPHEN 5-325 MG TABLET PO PRN ×3 (01:31→16:23)
[2022-02-08] MEDS: DOXYCYCLINE HYCLATE INJ 100 MG in SODIUM CHLORIDE 0.9% 100 ML IV SCH ×2 (01:32→13:30)
[2022-02-08] MEDS: metroNIDAZOLE INJ 500 MG/100 ML PREMIX IV SCH ×2 (03:20→15:55)
[2022-02-08] MEDS: ONDANSETRON 4 MG/2 ML VIAL IV PRN (06:46)
[2022-02-08 06:47] LABS: Basophils # 0.1 10*3/uL (0.0-0.2); Basophils % 0.4 % (0.0-0.8); Eosinophils # 0.2 10*3/uL (0.0-0.87); Eosinophils % 1.4 % (0.00-10.9); Hematocrit 26.5 VOL% (35.7-47.0); Hemoglobin 8.3 GM/DL (12.0-16.0); Immature Granulocytes % 1.6 %; Immature Granulocytes Absolute 0.25 #; Lymphocytes # 2.7 10*3/uL (1.4-4.0); Lymphocytes % 17.2 % (21.3-54.2); Mean Corpuscular HGB Conc 31.3 GM/DL (32-36); Mean Corpuscular Volume 90.1 FL (87-102); Mean Platelet Volume 8.4 FL (9.6-12.0); Monocytes # 1.1 10*3/uL (0.11-0.8); Monocytes % 7.1 % (1.7-12.7); Neutrophils % 72.3 % (38.7-73.9); Platelet Count 602 T/CUMM (130-400); Red Blood Count 2.94 MC/CUMM (3.8-5.5); Red Cell Distribution Width 15.9 % (9.3-17.3); White Blood Count 15.7 T/CUMM (4-12)
[2022-02-08 07:16] LABS: Albumin 2.5 G/DL (3.4-5.0); Bilirubin,Total 0.4 MG/DL (0.20-1.00); Calcium 8.6 MG/DL (8.5-10.1); Osmolality,Calculated 283.7 MOS/KG (273-304); Potassium 4.7 MMOL/L (3.5-5.1); Total Protein 7.5 G/DL (6.4-8.2)
[2022-02-08] MEDS: SCOPOLAMINE 1.5 MG PATCH TRANSDERM SCH (08:40)
[2022-02-08] MEDS: cefTRIAXone 2,000 MG in SODIUM CHLORIDE 0.9% 100 ML IV SCH (12:05)
[2022-02-08] MEDS: METOCLOPRAMIDE 10 MG/2 ML VIAL IV PRN (15:08)
[2022-02-09] MEDS: oxyCODONE/ACETAMINOPHEN 5-325 MG TABLET PO PRN ×3 (00:32→18:23)
[2022-02-09] MEDS: DOXYCYCLINE HYCLATE INJ 100 MG in SODIUM CHLORIDE 0.9% 100 ML IV SCH ×2 (02:07→14:15)
[2022-02-09] MEDS: metroNIDAZOLE INJ 500 MG/100 ML PREMIX IV SCH ×2 (04:42→15:45)
[2022-02-09 06:27] LABS: Basophils % 0.3 % (0.0-0.8); Eosinophils # 0.2 10*3/uL (0.0-0.87); Hematocrit 25.3 VOL% (35.7-47.0); Immature Granulocytes % 1.2 %; Immature Granulocytes Absolute 0.14 #; Lymphocytes # 2.5 10*3/uL (1.4-4.0); Mean Corpuscular HGB Conc 31.6 GM/DL (32-36); Mean Corpuscular Volume 91.3 FL (87-102); Mean Platelet Volume 8.4 FL (9.6-12.0); Monocytes % 8.2 % (1.7-12.7); Neutrophils % 67.3 % (38.7-73.9); Platelet Count 582 T/CUMM (130-400); Red Blood Count 2.77 MC/CUMM (3.8-5.5); Red Cell Distribution Width 15.9 % (9.3-17.3); White Blood Count 11.8 T/CUMM (4-12)
[2022-02-09 06:53] LABS: Calcium 8.5 MG/DL (8.5-10.1); Osmolality,Calculated 287.3 MOS/KG (273-304); Potassium 4.9 MMOL/L (3.5-5.1)
[2022-02-09 06:58] LABS: Alanine Aminotransferase < 9 U/L (13-56); Albumin 2.4 G/DL (3.4-5.0); Alkaline Phosphatase 114 U/L (45-117); Aspartate Amino Transferase 8 U/L (0-37); Bilirubin,Total < 0.39 MG/DL (0.20-1.00); Blood Urea Nitrogen 30 MG/DL (7-18); Calcium 8.3 MG/DL (8.5-10.1); Carbon Dioxide 26 MMOL/L (21-32); Chloride 109 MMOL/L (98-107); Glucose 88 MG/DL (74-106); Osmolality,Calculated 285.3 MOS/KG (273-304); Potassium 5.2 MMOL/L (3.5-5.1); Sodium 141 MMOL/L (136-145); Total Protein 6.7 G/DL (6.4-8.2)
[2022-02-09] MEDS ORDERED: MAGNESIUM SULF RIDER 2 GM/50 ML PREMIX IV ONE (10:00)
[2022-02-09] MEDS: cefTRIAXone 2,000 MG in SODIUM CHLORIDE 0.9% 100 ML IV SCH (12:30)
[2022-02-10] MEDS: DOXYCYCLINE HYCLATE INJ 100 MG in SODIUM CHLORIDE 0.9% 100 ML IV SCH ×2 (02:05→14:00)
[2022-02-10] MEDS: metroNIDAZOLE INJ 500 MG/100 ML PREMIX IV SCH ×2 (03:05→14:59)
[2022-02-10 07:11] LABS: Basophils # 0.1 10*3/uL (0.0-0.2); Basophils % 0.4 % (0.0-0.8); Eosinophils # 0.2 10*3/uL (0.0-0.87); Eosinophils % 1.3 % (0.00-10.9); Hematocrit 27.3 VOL% (35.7-47.0); Hemoglobin 8.5 GM/DL (12.0-16.0); Immature Granulocytes Absolute 0.11 #; Lymphocytes # 2.3 10*3/uL (1.4-4.0); Lymphocytes % 20.3 % (21.3-54.2); Mean Corpuscular HGB Conc 31.1 GM/DL (32-36); Mean Corpuscular Volume 89.5 FL (87-102); Mean Platelet Volume 8.3 FL (9.6-12.0); Monocytes # 0.9 10*3/uL (0.11-0.8); Monocytes % 7.7 % (1.7-12.7); Neutrophils % 69.3 % (38.7-73.9); Platelet Count 605 T/CUMM (130-400); Red Blood Count 3.05 MC/CUMM (3.8-5.5); Red Cell Distribution Width 15.6 % (9.3-17.3); White Blood Count 11.5 T/CUMM (4-12)
[2022-02-10 07:45] LABS: Osmolality,Calculated 286.1 MOS/KG (273-304)
[2022-02-10] MEDS: oxyCODONE/ACETAMINOPHEN 5-325 MG TABLET PO PRN ×2 (08:23→16:10)
[2022-02-10] MEDS: ONDANSETRON 4 MG/2 ML VIAL IV PRN ×2 (08:23→17:00)
[2022-02-10] MEDS ORDERED: MEPERIDINE 25 MG/1 ML VIAL IV ONE (09:22)
[2022-02-10] MEDS: cefTRIAXone 2,000 MG in SODIUM CHLORIDE 0.9% 100 ML IV SCH (13:22)
[2022-02-10] MEDS: SCOPOLAMINE 1.5 MG PATCH TRANSDERM SCH (16:59)
[2022-02-10] MEDS: METOCLOPRAMIDE 10 MG/2 ML VIAL IV PRN (20:53)
[2022-02-10] MEDS: ACETAMINOPHEN 325 MG TABLET PO PRN (21:57)
[2022-02-11] MEDS: DOXYCYCLINE HYCLATE INJ 100 MG in SODIUM CHLORIDE 0.9% 100 ML IV SCH ×2 (02:07→14:15)
[2022-02-11] MEDS: metroNIDAZOLE INJ 500 MG/100 ML PREMIX IV SCH ×2 (03:10→15:16)
[2022-02-11] MEDS: ONDANSETRON 4 MG/2 ML VIAL IV PRN ×2 (05:12→12:35)
[2022-02-11 05:45] LABS: Calcium 9.3 MG/DL (8.5-10.1); Osmolality,Calculated 278.5 MOS/KG (273-304)
[2022-02-11] MEDS: METOCLOPRAMIDE 10 MG/2 ML VIAL IV PRN (07:33)
[2022-02-11] MEDS: SCOPOLAMINE 1.5 MG PATCH TRANSDERM SCH (08:35)
[2022-02-11 11:23] VITALS: BP 131/74
[2022-02-11] MEDS: ACETAMINOPHEN 325 MG TABLET PO PRN (11:57)
[2022-02-11] MEDS: cefTRIAXone 2,000 MG in SODIUM CHLORIDE 0.9% 100 ML IV SCH (12:35)
== END 2022-02-11 16:15 | disposition home health service (06) | DRG 749 ==
LOC: N.ED 19:21 → N.EDINP 22:45 → N.OB 01-23 00:10
PROVIDERS: ADMIT Obstetrics & Gynecology; ATTEND Obstetrics & Gynecology